=== PATIENT | female | born 1995 | race Asian ===

== ENCOUNTER 2018-01-23 21:30 | Emergency (ER) | payer MEDICAID ==
[2018-01-23 21:43] VITALS: BP 122/84; PULSE 90; RESP 18; TEMP 98.4; O2SAT 98
--- NOTE | 2018-01-23 21:57 | EDPHY ---
H & P Stated Complaint: L flank pain, burning urination HPI/ROS: HPI CHIEF COMPLAINT: Dysuria HISTORY OF PRESENT ILLNESS: Patient very pleasant 22-year-old female she has a history of urinary tract infections, as well as pyelonephritis, she presents emergency room with dysuria. She states this been present for 2 days. She states she has very mild pain bilateral flanks 2/10. She has not had any fever , denies vomiting, denies abdominal pain. She does complain of dysuria. This been going on for 2 days. She decided come the emergency room as she has had infections ago into her kidneys and get worse. Past Medical History: UTI, pyelonephritis, asthma Past Surgical History: No recent surgery Social History: Denies drugs alcohol tobacco. Family History: Noncontributory ROS REVIEW OF SYSTEMS: A comprehensive 10 point review of systems is otherwise negative aside from elements mentioned in the history of present illness. Exam Constitutional appears well nontoxic triage nursing summary reviewed, vital signs reviewed, awake/alert. Eyes normal conjunctivae and sclera, EOMI, PERRLA. HENT normal inspection, atraumatic, moist mucus membranes, no epistaxis, neck supple/ no meningismus, no raccoon eyes. Respiratory clear to auscultation bilaterally, normal breath sounds, no respiratory distress, no wheezing. Cardiovascular rate normal, regular rhythm, no murmur, no edema, distal pulses normal. Gastrointestinal soft, non-tender, no rebound, no guarding, normal bowel sounds, no distension, no pulsatile mass. Genitourinary no significant CVA tenderness on exam. Musculoskeletal no midline vertebral tenderness, full range of motion, no calf swelling, no tenderness of extremities, no meningismus, good pulses, neurovascularly intact. Skin pink, warm, & dry, no rash, skin atraumatic. Neurologic awake, alert and oriented x 3, AAOx3, moves all 4 extremities equally, motor intact, sensory intact, CN II-XII intact, normal cerebellar, normal vision, normal speech. Psychiatric normal mood/affect. Heme/Lymph/Immune no lymphadenopathy. Differential Diagnosis: Includes but is not limited to in a particular order, UTI, cystitis, early pyelonephritis, kidney stone Medical Decision Making: Plan for this patient she appears well she has stable vital signs at triage are this is afebrile and does not have significant CVA tenderness on exam. Will obtain a urinalysis. Re-evaluation: Urinalysis reviewed shows trace bacteria. 1-3 whites, 1-3 reds. Here in emergency room I will order urine culture. Additionally should be given a dose of Keflex here and peridium. Keflex and peridium prescription provided for home. Return precautions discussed with her. She understands return emergency room if she develops worsening abdominal pain, fever, vomiting. Worsening back pain. Source: Patient - Personal History LMP (Females 10-55): 15-21 Days Ago Current Tetanus Diphtheria and Acellular Pertussis (TDAP): Yes - Medical/Surgical History Hx Asthma: No Hx Chronic Respiratory Disease: No Hx Diabetes: No Hx Cardiac Disease: No Hx Renal Disease: No Hx Cirrhosis: No Hx Alcoholism: No Hx HIV/AIDS: No Hx Splenectomy or Spleen Trauma: No Other PMH: kidney stone, - Social History Smoking Status: Never smoked Constitutional: Initial Vital Signs Temperature (C) 36.9 C 01/23/18 21:40 Heart Rate 90 01/23/18 21:40 Respiratory Rate 18 01/23/18 21:40 Blood Pressure 122/84 H 01/23/18 21:40 O2 Sat (%) 98 01/23/18 21:40 O2 Delivery Mode Room Air Allergies/Adverse Reactions: Sulfa (Sulfonamide Antibiotics) Allergy (Verified 01/23/18 21:50) Home Medications: Medication Instructions Recorded Cephalexin [Keflex] 500 mg PO Q6H #28 cap 01/23/18 Ondansetron Odt [Zofran Odt 4 mg 4 mg PO Q4 PRN #20 tab 01/23/18 (RX)] Phenazopyridine HCl [Pyridium] 200 mg PO TID #15 tab 01/23/18 Medical Decision Making - Data Points Laboratory Results: 01/23/18 21:45 Urine Color YELLOW Urine Appearance CLEAR Urine pH 7.0 (5.0-7.5) Ur Specific [place] 1.017 (1.002-1.030) Urine Protein NEGATIVE (NEGATIVE) Urine Ketones NEGATIVE (NEGATIVE) Urine Blood NEGATIVE (NEGATIVE) Urine Nitrate NEGATIVE (NEGATIVE) Urine Bilirubin NEGATIVE (NEGATIVE) Urine Urobilinogen NEGATIVE EU EU (0.2-1.0) Ur Leukocyte Esterase NEGATIVE (NEGATIVE) Urine RBC 1-3 /hpf /hpf (0-3) Urine WBC 1-3 /hpf /hpf (0-3) Ur Epithelial Cells TRACE /lpf /lpf (NONE-1+) Urine Bacteria TRACE /hpf H /hpf (NONE SEEN) Urine Mucus TRACE /lpf /lpf (NONE-1+) Urine Glucose NEGATIVE (NEGATIVE) Medications Given: Discontinued Medications Ondansetron HCl (Zofran Odt) 4 mg PO EDNOW ONE Stop: 01/23/18 22:02 Last Admin: 01/23/18 22:05 Dose: 4 mg Departure - Departure Disposition: Home, Routine, Self-Care Clinical Impression: UTI (urinary tract infection) Qualifiers: Urinary tract infection type: acute cystitis Hematuria presence: without hematuria Qualified Code(s): N30.00 - Acute cystitis without hematuria Condition: Good Instructions: Urinary Tract Infection in Women (ED) Additional Instructions: 1. Drink lots of fluids stay well-hydrated. 2. Antibiotics as prescribed. 3. Return emergency room if develops worsening back pain fever or vomiting. Referrals: CLAYTON COLLINS [Other] - As per Instructions Prescriptions: Cephalexin [Keflex] 500 mg PO Q6H #28 cap Ondansetron Odt [Zofran Odt 4 mg (RX)] 4 mg PO Q4 PRN #20 tab PRN Reason: for nausea Phenazopyridine HCl [Pyridium] 200 mg PO TID #15 tab
[2018-01-23] MEDS ORDERED: ONDANSETRON DISINTEGRATING 4 MG TAB PO ONE (22:01)
[2018-01-23] MEDS ORDERED: IBUPROFEN 800 MG TAB PO ONE (22:01)
[2018-01-23] MEDS ORDERED: PHENAZOPYRIDINE HCL 200 MG TAB PO ONE (22:04)
[2018-01-23] MEDS ORDERED: CEPHALEXIN 500MG PREPACK#4 BTL TAKEHOME ONE (22:04)
[2018-01-23] MEDS ORDERED: CEPHALEXIN 500 MG CAP PO ONE (22:04)
[2018-01-23] MEDS ORDERED: ACETAMINOPHEN 500 MG TAB ONE (22:07)
[2018-01-23] MEDS ORDERED: ACETAMINOPHEN 500 MG TAB PO ONE (22:12)
== END 2018-01-23 22:21 | disposition home or self-care (01) ==
DX: N30.00 Acute cystitis without hematuria (principal); B96.89 Other specified bacterial agents as the cause of diseases classified elsewhere; J45.909 Unspecified asthma, uncomplicated

== ENCOUNTER 2018-04-05 02:02 | Emergency (ER) | payer MEDICAID ==
[2018-04-05] MEDS ORDERED: fentaNYL 100 MCG/2 ML INJ ONE (02:33)
[2018-04-05] MEDS ORDERED: KETOROLAC 15 MG/1 ML SDV ONE (02:33)
[2018-04-05] MEDS ORDERED: NS 1,000 ML IV ONE ×2 (02:38→05:36)
[2018-04-05] MEDS ORDERED: KETOROLAC 15 MG/1 ML SDV IVP ONE (02:38)
[2018-04-05] MEDS ORDERED: fentaNYL 100 MCG/2 ML INJ IVP ONE (02:38)
--- NOTE | 2018-04-05 02:43 | EDPHY ---
H & P Stated Complaint: Awoke to pain in back, vomiting, sweating Time Seen by Provider: 04/05/18 02:27 HPI/ROS: Chief Complaint: Back pain, cramping HPI: 22-year-old woman who has a history of dysmenorrhea who frequently gets back cramping associated with her menses. Patient started having cramping this evening. Last menstrual. Is exactly 1 month ago. She is not sexually active and has never been. No vaginal bleeding or discharge. No fevers or chills. No urinary frequency urgency. No recent falls or other injuries. No numbness or weakness. She did take 400 mg of ibuprofen several hours ago with no relief. She has been seen for this multiple times. She has had ultrasounds and other endovaginal studies done with no diagnosis but has been told that she probably has polycystic ovarian syndrome. She has not followed up for further evaluation. ROS: 10 point Review of Systems is negative except as noted in the HPI. PMH: Possible polycystic ovarian syndrome Social History: No smoking, no alcohol, no recreational drug use Family History: non-contributory Physical Exam: Gen: Awake, Alert, No Distress HEENT: Nose: no rhinorrhea Eyes: PERRLA, EOMI Mouth: Moist mucosa Neck: Supple, no JVD Chest: nontender, lungs clear to auscultation Heart: S1, S2 normal, no murmur Abd: Soft, non-tender, no guarding, no adnexal tenderness Back: no CVA tenderness, no midline tenderness, mild bilateral paraspinal tenderness in the soft tissues Ext: no edema, non-tender Skin: no rash Neuro: CN II-XII intact, Sensation grossly intact, Strength 5/5 in bilateral upper and lower extremities - Personal History LMP (Females 10-55): Over 28 Days Ago Current Tetanus/Diphtheria Vaccine: Yes Current Tetanus Diphtheria and Acellular Pertussis (TDAP): Yes - Medical/Surgical History Hx Asthma: No Hx Chronic Respiratory Disease: No Hx Diabetes: No Hx Cardiac Disease: No Hx Renal Disease: No Hx Cirrhosis: No Hx Alcoholism: No Hx HIV/AIDS: No Hx Splenectomy or Spleen Trauma: No Other PMH: kidney stone, Polycyctic ovarin disease. - Social History Smoking Status: Never smoked Constitutional: Initial Vital Signs Temperature (C) 36.7 C 04/05/18 02:05 Heart Rate 91 04/05/18 02:05 Respiratory Rate 16 04/05/18 02:05 Blood Pressure 128/92 H 04/05/18 02:05 O2 Sat (%) 97 04/05/18 02:05 O2 Delivery Mode Room Air Allergies/Adverse Reactions: fluticasone Allergy (Verified 04/05/18 02:09) Sulfa (Sulfonamide Antibiotics) Allergy (Verified 01/23/18 21:50) Home Medications: Medication Instructions Recorded Phentermine HCl 04/05/18 Topamax 04/05/18 Medical Decision Making ED Course/Re-evaluation: Patient is improved after medications. She has gotten fluids. She still unable to urinate. I have ordered a 2nd L of IV fluids. Patient's pain is improved. She states she does not feel that she needs to urinate at all. She is feeling much better. She is not 1 remain emergency department any longer. I have instructed her to collect the urine sample and take it to her primary care physician in follow-up in the next 1-2 days. She will return for any worsening symptoms or any concern. At this time she has a benign exam. She is completely soft and nontender abdomen. I do not think there is any significant acute intra-abdominal pathology at this time. Symptoms consistent with musculoskeletal back strain. - Data Points Medications Given: Discontinued Medications Fentanyl (Sublimaze) 50 mcg IVP EDNOW ONE Stop: 04/05/18 02:39 Last Admin: 04/05/18 02:39 Dose: 50 mcg Sodium Chloride (Ns) 1,000 mls @ 0 mls/hr IV ONCE ONE PRN Reason: Wide Open Stop: 04/05/18 02:39 Last Admin: 04/05/18 02:39 Dose: 1,000 mls Sodium Chloride (Ns) 1,000 mls @ 0 mls/hr IV ONCE ONE; Wide Open PRN Reason: Protocol Stop: 04/05/18 05:37 Last Admin: 04/05/18 05:37 Dose: 1,000 mls Ketorolac Tromethamine (Toradol) 15 mg IVP EDNOW ONE Stop: 04/05/18 02:39 Last Admin: 04/05/18 02:39 Dose: 15 mg Departure - Departure Disposition: Home, Routine, Self-Care Clinical Impression: Back pain Condition: Good Instructions: Back Pain (ED) Additional Instructions: Collect a urine sample and take it to your primary care physician follow-up in the next 1-2 days. Return to the emergency depart for worsening pain, nausea, vomiting, fevers, chills, or any other concerns. Referrals: RADHA COLLINS [Other] - As per Instructions
[2018-04-05 06:41] VITALS: BP 126/80
== END 2018-04-05 06:41 | disposition home or self-care (01) ==
DX: M54.9 Dorsalgia, unspecified (principal); E86.9 Volume depletion, unspecified
CPT/HCPCS: 96374; J1885; J3010